=== PATIENT | female | born 1955 | race Caucasian/White ===

== ENCOUNTER 2018-08-06 11:53 | Day surgery (SDC) | payer MEDICARE, SELFPAY ==
[2018-08-06 12:10] VITALS: BP 125/77; PULSE 68; RESP 16; TEMP 36.5; O2SAT 97; BMI 34.9
--- NOTE | 2018-08-06 12:16 | HP.PCM_ITS ---
History and Physical Date of Admission: 08/06/18 HISTORY AND PHYSICAL ? Sarah Nogueira 1955 ? REFERRING PHYSICIAN: ??Florence Friedman MD ? CHIEF COMPLAINT: ??Consult (Colonoscopy consult- blood in stool) ? HPI: The patient is a 62 year old female referred for endoscopy. ?Sarah notes constipation x 2 months.??She has noted a small amount of bright red blood on toilet paper and in bowel after straining significantly with a bowel movement.??Patient denies any ?weight changes, black tarry stools or abdominal pain. ?Denies?family history of colon issues. ?The patient notes no upper GI complaints. ? Sarah?has?undergone prior endoscopy?in [address] Loja. ?She was noted to have a very tortuous sigmoid colon and had small internal hemorrhoids noted at that time. ? Patient's past medical history is multiple CVAs and TIAs, hypertension, hypercholesterolemia, obstructive sleep apnea, carcinoma in situ of cervix, elevated factor VIII level. ?Patient follows with Dr. Friedman for her chronic medical conditions. ?She is maintained on long-term anticoagulation with warfarin. ?Denies chest pain, shortness of breath or recent hospitalizations. ?Denies problems with sedation in the past. ? PAST?MEDICAL?HISTORY PAST MEDICAL HISTORY Diagnosis Date ? Acute, but ill-defined, cerebrovascular disease ?12/01/2004/12/10/2005 ? Allergy, unspecified not elsewhere classified 12/01/2004 ? Anticoagulated on Coumadin 12/24/2017 ? Carcinoma in situ of cervix ? ? Carcinoma in situ of cervix uteri 12/01/2004 ? 1988-cone of cervix ? Congenital deficiency of other clotting factors 12/01/2004 ? The factor VIII clottable activity level is elevated with normal levels of fibrinogen and C reactive protein. A persistent elevation of factor VIII has been associated with an increased risk of venous thrombosis. ? CVA, old, cognitive deficits ? ? Dizziness and giddiness 12/01/2004 ? Dysthymic disorder ? ? Depression (non-psychotic) ? Elevated factor VIII level 08/08/2017 ? December hypercoag panel ? Generalized osteoarthrosis, unspecified site 12/01/2004 ? Hypercholesteremia 01/04/2012 ? HYPERTENSION NOS 12/01/2004 ? Internal hemorrhoids without mention of complication ? ? Mitral valve disorders(424.0) ? ? BERENICE (obstructive sleep apnea) ? ? DME [facility] ? Other disorder of menstruation and other abnormal bleeding from female genital tract 12/01/2004 ? Sciatica 12/01/2004 ? Sciatica ? ? Unspecified transient cerebral ischemia 12/01/2004 ? ? PAST?SURGICAL?HISTORY PAST SURGICAL HISTORY Procedure Laterality Date ? COLONOSCOP W/ OR W/O BRSH SPEC ? 11/12/08 ? D&C, DIAG AND/OR THERAPEUTIC ? 1987 ? Dilation & curettage ? HYSTEROSCOPY, DIAGNOSTIC (SEPARATE ? 2001 ? Hysteroscopy/curettage ? PAST SURGICAL HISTORY OF ? 1987 ? CONE BIOPSY ? PAST SURGICAL HISTORY OF ? 10/07/2005 ? herniated disk /back ? ? CURRENT?MEDICATIONS ? Current Outpatient Medications: warfarin (COUMADIN) 1 mg tablet Take 1/2 Tablet MWF and 1 mg TTSS clonazePAM (KLONOPIN) 1 mg tablet Take 1 tablet by mouth daily at bedtime for 90 days. mometasone (NASONEX) 50 mcg/actuation nasal spray Use 2 Sprays in the nose once daily. cyclobenzaprine (FLEXERIL) 10 mg tablet take 1 tablet by mouth twice a day if needed for muscle spasm simvastatin (ZOCOR) 40 mg tablet take 1 tablet by mouth once daily propranolol ER (INDERAL LA) 120 mg 24 hr capsule Take 1 capsule by mouth once daily. sertraline (ZOLOFT) 100 mg tablet Take 1.5 tablets by mouth once daily. simvastatin (ZOCOR) 40 mg tablet Take 1 tablet by mouth once daily. warfarin (COUMADIN) 1 mg tablet 0.5mg Mon & Fri and 1mg all other days CPAP Mask (per patient preference) optional chin strap (if indicated), filters, tubing / heated tubing, heated humidity and lifetime supplies. ?Dx. BERENICE ?G47.33 327.23 TENS UNIT ELECTRODES MISC ? nexuubmk-fhjqmnbji-crjcjjigdjxeuw (CORTISPORIN) otic solution Use 1 Drop in both ears as needed. gabapentin (NEURONTIN) 100 mg capsule Take 2 capsules by mouth three times daily. B-complex with vitamin C (SUPER B COMPLEX-VITAMIN C) tablet Take 3 tablets by mouth once daily. Ibuprofen (ADVIL) 200 mg cap Takes 3 tablets every morning and 3 tablets as needed for headache or pain HYDROcodone-acetaminophen (NORCO) 5-325 mg per tablet 1 to 2 tablets every 4 hours as needed for painTaking 1/2 tablet at bedtime to help sleep aspirin, enteric coated (ASPIRIN, ENTERIC COATED) 325 mg EC tablet Take 1 tablet by mouth once daily. with food. uwvaduhubmb-Q3-Poclfmifx serr (OSTEO BI-FLEX, 5-LOXIN,) 1,500-400-100 mg-unit-mg tab Take 1 tablet by mouth once daily. carboxymethylcellulose (REFRESH) 0.5 % drop 1 drop in each eye 3-4 times per day as needed camphor-menthol (MEN-PHOR) lotion Apply 1 application to affected area as needed for Itching/Rash. CPAP Initiate Auto BiPAP @ 10-20 cm of water with pressure support 5 with humidification. Mask (per patient preference) optional chin strap (if indicated), filters, tubing, humidifier and lifetime supplies. lidocaine 2 % jelly Apply to affected sore in mouth every hour as needed Cranberry 500 mg cap Take 1 capsule by mouth once daily. fexofenadine (GRISEL) 180 mg ORAL tablet Take ?by mouth twice daily. Taking 1/3 pill twice daily since pharmacy does not have the 60 mg OTC pills and insurance will not cover for the 60 mg BID prescription mometasone furoate(ELOCON 0.1 % TOPICAL SOLN) Apply ?to affected inflamed itching seborrheic dermatitis spots selectively on scalp or hairline scalp QD--BID (once to twice per day) prn as tolerated. ??AVOID face, eyes, eyelids, and deep fold areas (eg., underarms or groin). DAILY MULTIVITAMIN TAB ? ? No current facility-administered medications for this visit.? ? ALLERGIES:?Dusts [Other]; Grass Pollen; Molds [Other]; Mushrooms [Other]; Penic illins; Pollen; Potatoes [Other]; Ricotti Cheese [Other]; Tomatoes ? PERSONAL HISTORY:? SOCIAL?HISTORY Social History ??Socioeconomic History ?Marital status: Single ?Spouse name: Not on file ?Number of children: 0 ?Years of education: 12 ?Highest education level: Not on file ??Social Needs ?Financial resource strain: Not on file ?Food insecurity - worry: Not on file ?Food insecurity - inability: Not on file ?Transportation needs - medical: Not on file ?Transportation needs - non-medical: Not on file ??Occupational History ?Occupation: Disabled ??Tobacco Use ?Smoking status: Never Smoker ?Smokeless tobacco: Never Used ??Substance and Sexual Activity ?Alcohol use: No ?Drug use: No ?Sexual activity: Not Currently ??Other Topics ?Concerns: ?Not on file ??Social History Narrative ?Not on file ? FAMILY HISTORY:? FAMILY?HISTORY FAMILY HISTORY Problem Relation Age of Onset ? Cancer Mother ?BREAST ? Hypertension Mother ? ? Cancer Father ?melanoma ? Diabetes Sister ? ? Heart Maternal Grandmother ? ? Colon Cancer Paternal Grandmother ? ? Breast Cancer Maternal Aunt ? ? REVIEW OF SYMPTOMS: ??The review of systems data was entered by the nurse and reviewed by me ? Nursing Notes: Moshe Vuong ?07/19/2018 ?8:53 AM ?Signed REVIEW OF SYSTEMS: ?General:???The patient denies fatigue, denies weight loss, NOTES weight gain, denies feeling hot, and denies feelings of cold. ?Eyes: ?The patient denies glaucoma, denies eye injury/surgery, wears glasses or contacts. ?Ear/Nose/Throat: ?The patient NOTES allergies, NOTES hayfever, NOTES ear infections, and NOTES bloody noses. ?Cardiovascular: ?The patient denies chest pain, denies heart disease, NOTES high blood pressure,denies cardiac stent, denies prior heart attack, denies irregular heart beat, NOTES high cholesterol, ?denies poor circulation, denies heart failure, other cardiac issues, denies claudication, denies cold feet, denies peripheral arterial stent. ?Respiratory: ?The patient denies tuberculosis, denies pneumonia, denies frequent cough, denies pulmonary embolism, denies shortness of breath, and denies coughing up blood. ?Gastrointestinal: ?The patient denies difficulty swallowing, denies acid reflux, denies ulcers, denies vomiting, denies jaundice/hepatitis, denies gallbladder problems, denies black or tarry stools, denies hemorrhoids, denies bleeding from rectum, denies diverticulitis, denies constipation, denies diarr hea, denies loss of stool control, and denies hernias. ?Kidney/Bladder: ?The patient denies kidney stones, NOTES urine infections, and denies bloody urine. ?Skin: ?The patient denies a history of skin cancer, NOTES bleeding/changing moles, and denies a history of skin rash. ?Neurologic: ?The patient denies a history of epilepsy/convulsions, NOTES headaches, denies head/spinal injuries, and NOTES stroke/TIA. ?Psychiatric: ?The patient denies psychiatric medications, NOTES depression, and denies voices, denies substance abuse. ?Endocrine: ?The patient denies thyroid disorders, denies diabetes, and denies hormonal problems. ?Hematologic: ?The patient denies a history of bruising, NOTES bleeding, and denies anemia, denies blood clots. ?Infections: ?The patient denies a history of measles and mumps, denies rheumatic fever, and denies sexually transmitted diseases. ?Musculoskeletal: ?The patient NOTES back pain/injury, NOTES back problems, NOTES sciatica, NOTES knee/foot trouble, NOTES arthritis, or denies gout. ? ? When was patient's last Mammogram screening? 03/08/2018 ? ?Last Colonoscopy: ?2008 ? Moshe Vuong? I have confirmed and edited as necessary, the PFSH and ROS obtained by others. ? ? PHYSICAL EXAMINATION: ? General: ?The patient is 62 year old female, well nourished, well hydrated in no acute distress. ?The patient is oriented to time, place, and person. ? VITALS:?Blood pressure 122/76, pulse 84, temperature 36.4 ?C (97.6 ?F), height 177.8 cm (5' 10), weight 110.8 kg (244 lb 3.2 oz), last menstrual period 12/16/2013, SpO2 94 %.?Body mass index is 35.04 kg/m?.? ? HEENT: ?Normal cephalic, ataumatic, pupils are equally round, sclera are anicteric, mucous membranes are moist, oropharynx is clear. ?Neck has no masses, asymmetry or lymphadenopathy. ? ? Respiratory: ?Clear to auscultation and percussion. ?Normal respiratory excursion and pattern. ? Cardiac: ?Examination is regular rate and rhythm. ?Normal S1/S2 ? Abdominal exam: ?Soft, nontender, ?with no palpable masses. ?No hepatosplenomegaly. ?No palpable hernias. ? Extremities: ?no clubbing, cyanosis or edema. ?No adenopathy. ? LABORATORY VALUES: As Noted ? RADIOLOGIC STUDIES: ?As Noted ? ? Assessment ? IMPRESSION:?Constipation x 2 months, recent blood red blood after straining- recommend colonoscopy ? PLAN: ?I have reviewed my findings with the surgeon. ?Will plan for lower?endoscopy. ??We discussed the risks and benefits of the planned endoscopy. ?I have informed the patient that complications can occur including failure to complete the endoscopy and perforation. ?The patient had the opportunity to ask questions concerning the planned endoscopy. ?My staff has also explained the procedure to the patient in understandable terms and has given the patient printed material concerning the procedure. ?The patient freely consents to surgery. ? I plan to use?Golytely?bowel preparation ? The patient has medical comorbidities for which we will plan for the procedure to be performed under Monitored Anesthetic Care. ? ? Diagnoses:?(Z79.01) Anticoagulated on Coumadin ?(primary encounter diagnosis) (R79.1) Elevated factor VIII level (Z86.73) History of CVA (cerebrovascular accident) (Z12.11) Encounter for screening for malignant neoplasm of colon (K62.5) BRBPR (bright red blood per rectum) (K59.00) Constipation, unspecified constipation type ? ? Shelby Shipman PA-C
[2018-08-06 14:11] VITALS: BP 125/77; BP 128/77; PULSE 71; RESP 18; TEMP 36.5; O2SAT 97
--- NOTE | 2018-08-06 14:11 | OP.ENDO_ITS ---
08/06/2018 Florence Friedman [address] [place] [address] Re : Colonoscopy procedure for Sarah Nogueira Dear Dr. Friedman This procedure was performed on Monday, August 06, 2018. My impressions and recommendations are as follows: Impressions : - The entire examined colon is normal on direct and retroflexion views. - No specimens collected. Recommendations : - Discharge patient to home. - Resume previous diet. - Continue present medications. - Repeat colonoscopy in 10 years for screening purposes. - Return to physician medical assistant cardiology in 1 week. My findings are described in the full procedure note, which is enclosed. If I can be of further assistance, please feel free to contact me at Doctor phone number(s): , Work: . Sincerely, Addison Ndiaye MD 08/06/2018 2:11:11 PM This report has been signed electronically.
[2018-08-06 14:15] VITALS: BP 110/62; BP 125/77; PULSE 67; RESP 18; O2SAT 100
[2018-08-06 14:20] VITALS: BP 114/69; BP 125/77; PULSE 67; RESP 67; O2SAT 100
[2018-08-06 14:27] VITALS: BP 124/72; BP 125/77; PULSE 64; RESP 18; TEMP 37; O2SAT 100
[2018-08-06 14:51] VITALS: BP 125/77
== END 2018-08-06 14:59 | disposition home or self-care (01) ==
LOC: EN 11:54 → AC 11:56
PROVIDERS: Family Provider Internal Medicine; PCP Internal Medicine; Referring Provider Surgery; Visit Provider Surgery
PROC: 0DJD8ZZ Inspection of Lower Intestinal Tract, Via Natural or Artificial Opening Endoscopic (ICD-10-PCS; CPT 45378; principal; 2018-08-06 12:55)
DX: Z12.11 Encounter for screening for malignant neoplasm of colon (principal); K59.00 Constipation, unspecified; K62.5 Hemorrhage of anus and rectum; R79.1 Abnormal coagulation profile; I10 Essential (primary) hypertension; E78.00 Pure hypercholesterolemia, unspecified; G47.33 Obstructive sleep apnea (adult) (pediatric); F41.9 Anxiety disorder, unspecified; M15.9 Polyosteoarthritis, unspecified; F32.9 Major depressive disorder, single episode, unspecified; Z86.73 Personal history of transient ischemic attack (TIA), and cerebral infarction without residual deficits; Z85.41 Personal history of malignant neoplasm of cervix uteri; Z87.440 Personal history of urinary (tract) infections; Z79.01 Long term (current) use of anticoagulants; Z79.82 Long term (current) use of aspirin; Z79.899 Other long term (current) drug therapy
CPT/HCPCS: G0121; J7120; J2405

== ENCOUNTER → 2020-04-16 | Outpatient (CLI) | payer MEDICARE, SELFPAY ==
[2020-04-16 15:33] LABS: International Normalized Ratio 2.2; Prothrombin Time (Protime)PT. 23.6 SECONDS (11.7-14.9)
== END | disposition home or self-care (01) ==
LOC: LABSPEC 15:10
PROVIDERS: PCP Internal Medicine; Visit Provider Internal Medicine
DX: I63.9 Cerebral infarction, unspecified (principal)
CPT/HCPCS: 85610

== ENCOUNTER → 2021-04-08 20:00 | Outpatient (CLI) | payer MEDICARE, SELFPAY | PROVIDERS: PCP Internal Medicine; Visit Provider Nurse Practitioner | DX: G47.33 Obstructive sleep apnea (adult) (pediatric) (principal) | CPT/HCPCS: 95811 ==

== ENCOUNTER → 2021-09-28 | Outpatient (CLI) | payer MEDICARE, SELFPAY | END | disposition home or self-care (01) | LOC: SL 11:39 | PROVIDERS: PCP Internal Medicine; Referring Provider Nurse Practitioner Acute Care; Visit Provider Nurse Practitioner Acute Care | DX: G47.33 Obstructive sleep apnea (adult) (pediatric) (principal) | CPT/HCPCS: 98960; G0463 ==

== ENCOUNTER → 2021-11-01 | Outpatient (CLI) | payer MEDICARE, SELFPAY ==
--- NOTE | 2021-11-01 15:11 | US_ITS ---
STUDY: RENAL ULTRASOUND - COMPLETE REASON FOR EXAM: Female, 66 years old. UTI TECHNIQUE: Ultrasound evaluation of the kidneys was performed with real-time and static copeland-scale imaging. COMPARISON: None. FINDINGS: RIGHT KIDNEY: Normal location of the right kidney, which is normal in size. The right kidney measures 10.8 cm x 5.5 cm x 5.1 cm. There is a normal cortex of the right kidney. The renal cortex measures 1.4 cm. There is no right renal mass or cyst. There are no right renal calculi. There is no right hydronephrosis. DISTAL RIGHT URETER: There is non-visualization of the distal right ureter. There is no demonstrated right ureterovesical junction calculus. There is no demonstrated right ureteral jet. LEFT KIDNEY: Normal location of the left kidney, which is normal in size. The left kidney measures 9.9 cm x 5.1 cm x 5.3 cm. There is a normal cortex of the left kidney. The renal cortex measures 1.5 cm. There is no left renal mass or cyst. There are no left renal calculi. There is no left hydronephrosis. DISTAL LEFT URETER: There is non-visualization of the distal left ureter. There is no demonstrated left ureterovesical junction calculus. There is no demonstrated left ureteral jet. BLADDER: Not adequately distended for assessment. The uterus appears enlarged and heterogeneous echotexture suggesting fibroid change. US/Kidney and Bladder IMPRESSION: Normal ultrasound of the kidneys. Electronically Signed: Tab Orr MD at 12:11 EDT ,
== END | disposition home or self-care (01) ==
PROVIDERS: PCP Internal Medicine; Visit Provider Urology
DX: N39.0 Urinary tract infection, site not specified (principal)
CPT/HCPCS: 76770

== ENCOUNTER → 2022-06-21 | Outpatient (CLI) | payer MEDICARE, SELFPAY ==
--- NOTE | 2022-06-21 16:43 | RAD_ITS ---
STUDY: X-RAY - LUMBAR SPINE REASON FOR EXAM: Female, 66 years old. Radiating low back pain TECHNIQUE: 5 view(s) of the lumbar spine were obtained. COMPARISON: None FINDINGS: Normal lumbar lordosis. There is no substantial scoliosis. There is a normal alignment of the vertebrae. There is multilevel endplate spondylosis of the lumbar vertebrae. There is multi-level degenerative disc disease with multi-level disc space narrowing. There is no demonstrated fracture. There is atherosclerotic calcification of the abdominal aorta without a demonstrated aneurysm. RAD/L/S Spine Min 4 Views IMPRESSION: Degenerative changes of the spine, as detailed above. Electronically Signed: Dylan Estrada MD at 8:08 EDT ,
== END | disposition home or self-care (01) ==
LOC: MTRAD 16:33
PROVIDERS: PCP Internal Medicine; Referring Provider Nurse Practitioner Family; Visit Provider Nurse Practitioner Family
DX: M51.36 Other intervertebral disc degeneration, lumbar region (principal); M47.817 Spondylosis without myelopathy or radiculopathy, lumbosacral region; M96.1 Postlaminectomy syndrome, not elsewhere classified; M12.9 Arthropathy, unspecified
CPT/HCPCS: 72110

== ENCOUNTER 2022-08-11 16:00 | Outpatient (RCR) | payer MEDICARE, SELFPAY ==
--- NOTE | 2022-07-13 15:59 | HP.PTEVAL_ITS ---
Patient's Visit Information SRIKANTH GALINDO is a 66 year old F referred to Physical Therapy by FLAVIO Luther with a diagnosis of DISPLACEMENT OF LUMBAR DDD ,SPINAL STENOSIS ,ARTHOPATHY ,LS SPONDYLOSIS. Date of Evaluation: 07/13/22 Physical Therapist: Jayesh Nguyen, PT, Cert MDT, OCS - Visit Plan Frequency: 2x /Week Duration: 4 Weeks Plan: PT INTERVETIONS AQUATICS THERAPY DLS ,POSTURAL EX'S , LE FLEXABLITYT , ENDURANCE AND POSTURE TRAINING - Subjective This 66 y/o female presents physical therapy with back and leg pain. Patient has had lumbar radicular symptoms ~ 20years .patient had lumbar discectomy/laminectomy 2004. Patient seen pain management recommended gabapentin, Narco . Patient has couple epidural injection ~ 3 years. Patient had x-rays DDD. Patient pain located symmetrical lumbar with radicular symptom lateral leg left. Aggravating factors walking, standing ,lifting ,bending affects ADL's and function. Alleviating factors rest. C/O paresthesia/tingling feet. Bowel/bladder -. Coughing/sneezing -. Patient has had PT in past . Last summer patient has had falls . Patient c/o weakness . Patient pain affects QOL and function. Patient goals to decrease pain and function. Patient has h/o CVA. SOCIAL: . VOCATION: retired disability - Pain Bilateral Back Pain Intensity (Out of 10): 7 Pain Intensity Range: 10 Left Lower Extremity Pain Intensity (Out of 10): 6 Pain Intensity Range: 10 - Objective POSTURE: mild forward posture hips/knees flexed. PALPATION: tender LS/SI. NEURO: denies paresthesia/tingling ,reflexes L3-4,L4-L5,L5-S1 1/3. SYMTTRIES: align. GAIT: reciprocal gait slow dennis hips/knees flexed forward posture. LUMBAR ROM: flexion min loss ,extension mod/severe loss, side glides mod loss. FLEXABLITY: hamstrings mild tight. PROM: 0 degrees hip IR. MMT: quads/hams 4/5 ,hip flexion 4-/5 ,ankle 4/5 - Special Tests L/S Slump test left side: Negative L/S Slump test right side: Negative L/S Left Straight Leg Raise: Negative L/S Right Straight Leg Raise: Negative - Balance/Special Test Scores Oswestry Low Back Score: 30 - Goals Goal 1:: Patient to be I with Aquatic therapy program Goal Time Frame: 4-6 Weeks Goal 2:: Patient to demonstrate 50% improvement with decrease pain and improved function Goal Time Frame: 4-6 Weeks Goal 3:: Patient to improve lumbar ROM for function of recovery to tie shoes Goal Time Frame: 4-6 Weeks Goal 4:: Patient improve back oswestry score by 5 points to improve to improve QOL Goal Time Frame: 4-6 Weeks Goal 5:: Patient to improve ability to walk and stand > 15-20 mins to perform housework tasks and ADL's Goal Time Frame: 4-6 Weeks - Rehabilitation Potential Physical Therapy Diagnosis: This patient has multiple comorbities to influence condition with pain ,decrease ROM ,impaired gait ,weakness impairs ability with ADLS and housework tasks thus benefit from skilled PT Rehabilitation Potential: Fair - Anticipated Interventions Patient/Client Instruction: Educate patient on: Condition, Plan of Care For the Purpose of:: To decrease pain, To increase ROM, To improve muscle performance and motor function, To improve ability to perform ADL's, To increase tolerance to activity/condition/position, To improve ability of physical actions for home/community/work/leisure, To improve gait and locomotor functions, To improve health of tissue, To decrease soft tissue restriction, To increase flexibility/ROM, To improve endurance, To improve ability to perform tasks related to life management Therapeutic Exercise to Include: Strength training, Endurance training, Body mechanics, Postural training, Flexibilty training, In an aquatic setting, Active ROM, Sabino Exercises Comment: ble For the Purpose of:: To decrease pain, To increase ROM, To improve muscle performance and motor function, To improve ability to perform ADL's, To improve ability of physical actions for home/community/work/leisure, To improve health of tissue, To decrease soft tissue restriction, To increase flexibility/ROM, To improve endurance, To improve tolerance to ADL's Thank you for the opportunity to evaluate your patient. For Medicare and Medicare HMO plans, please review the plan of care and approve it. It will need to be FAXED BACK to us at [phone] for Medicare purposes. For Medicare only, by signing this I certify the plan of care. Please let me know if there are questions or concerns regarding this plan of care. Physician Signatu re: Date:
--- NOTE | 2022-08-11 17:13 | HP.PTDCSUM ---
It has been my pleasure to treat SRIKANTH GALINDO referred by FLAVIO Luther, with the diagnosis of DISPLACEMENT OF LUMBAR DDD ,SPINAL STENOSIS ,ARTHOPATHY ,LS SPONDYLOSIS for a total of 8 visit(s). Discharge Date: Please see the following information for a summary of their discharge status. Subjective: Doing okay.. Can do ex's on own in water. Bilateral Back Pain Intensity (Out of 10): 5 Left Lower Extremity Pain Intensity (Out of 10): 5 % Improvement: 20 Objective/Function: POSTURE: mild forward posture hips/knees flexed. PALPATION: tender LS/SI. NEURO: denies paresthesia/tingling ,reflexes L3-4,L4-L5,L5-S1 1/3. SYMTTRIES: align. GAIT: reciprocal gait slow dennis hips/knees flexed forward posture. LUMBAR ROM: flexion min loss ,extension mod/severe loss, side glides mod loss. FLEXABLITY: hamstrings mild tight. PROM: 0 degrees hip IR. MMT: quads/hams 4/5 ,hip flexion 4-/5 ,ankle 4/5 Goal 1:: Patient to be I with Aquatic therapy program Goal Progress: Goal Met Goal 2:: Patient to demonstrate 50% improvement with decrease pain and improved function Goal Progress: Goal Met Goal 3:: Patient to improve lumbar ROM for function of recovery to tie shoes Goal Progress: Goal Met Goal 4:: Patient improve back oswestry score by 5 points to improve to improve QOL Goal Progress: Goal Met Goal 5:: Patient to improve ability to walk and stand > 15-20 mins to perform housework tasks and ADL's Goal Progress: Goal Met Plan: D/C PROVIDE GYM PROGRAM If there are questions or concerns regarding this patient's physical therapy, please feel free to call me at [phone]. Thank you for the referral of this patient. Sincerely, Jayesh Nguyen, PT, Cert MDT, OCS Balance/Gait/Functional tests - Balance/Special Test Scores Oswestry Low Back Score: 15
== END 2022-08-11 19:00 | disposition home or self-care (01) ==
LOC: PT 16:00
PROVIDERS: PCP Internal Medicine; Referring Provider Nurse Practitioner Acute Care; Visit Provider Nurse Practitioner Acute Care
DX: M47.817 Spondylosis without myelopathy or radiculopathy, lumbosacral region (principal); M51.36 Other intervertebral disc degeneration, lumbar region; M54.14 Radiculopathy, thoracic region; M96.1 Postlaminectomy syndrome, not elsewhere classified; M46.96 Unspecified inflammatory spondylopathy, lumbar region
CPT/HCPCS: 97110; 97113; 97162

== ENCOUNTER → 2024-02-13 | Outpatient (CLI) | payer MEDICARE, SELFPAY ==
--- NOTE | 2024-02-13 15:51 | RAD_ITS ---
STUDY: X-RAY - THORACIC SPINE REASON FOR EXAM: Female, 68 years old. THORACIC PAIN, RECENT FALL TECHNIQUE: 3 view(s) of the thoracic spine were obtained. COMPARISON: None. FINDINGS: Normal kyphosis of the thoracic spine. There is no substantial scoliosis. There is multilevel endplate spondylosis of the thoracic vertebrae. There is multilevel disc space narrowing of the thoracic spine. The soft tissue structures are unremarkable. RAD/Thoracic Spine 3 Views IMPRESSION: Degenerative disc disease in lower thoracic spine appear Electronically Signed: Addison Spivey MD at 12:35 EST ,
== END | disposition home or self-care (01) ==
LOC: MTRAD 15:49
PROVIDERS: PCP Internal Medicine; Referring Provider Clinical Nurse Specialist Adult Health; Visit Provider Clinical Nurse Specialist Adult Health
DX: M54.6 Pain in thoracic spine (principal); W19.XXXA Unspecified fall, initial encounter
CPT/HCPCS: 72072